=== PATIENT | female | born 1995 | race Caucasian/White ===

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

== ENCOUNTER 2017-01-21 14:57 | Emergency (ER) | payer OTHER ==
[~2017-01-21] VITALS: Ht 152.4 cm; Wt 51.0 kg
[~2017-01-21 14:57] MED LIST changes: +MOTRIN600 MG PO; +ZOFRAN ODT4 MG PO
[2017-01-21 16:08] VITALS: BP 124/64
[2017-01-21] MEDS ORDERED: PROCTOFOAM-HC10 GM PR (18:19)
== END 2017-01-21 18:27 | disposition home or self-care (01) ==
LOC: EME 14:57
PROC: 06BY3ZC Excision of Hemorrhoidal Plexus, Percutaneous Approach (ICD-10-PCS; principal; 2017-01-21)
DX: K64.5 Perianal venous thrombosis (principal)
CPT/HCPCS: 99281; 99284

== ENCOUNTER 2017-06-22 19:37 | Emergency (ER) | payer OTHER ==
[~2017-06-22] VITALS: Ht 154.9 cm; Wt 61.8 kg
[~2017-06-22 19:37] MED LIST changes: +PROCTOFOAM-HC10 GM PR
[2017-06-22 21:25] LABS: INTERNAL CONTROL VALID? YES
[2017-06-22 22:03] LABS: EOSINOPHIL (%) 1.1 % (0-5); EOSINOPHIL COUNT 0.1 K/uL (0-0.3); HEMATOCRIT 35.5 % (36.0-46.0); IMMATURE GRANULOCYTE (%) 0.4 % (0.0-0.7); INSTRUMENT ABS NEUTROPHIL CT 7.2 K/uL; LYMPHOCYTE COUNT 0.9 K/uL (1.0-2.8); MCHC 34.4 G/DL (30.0-36.0); MCV 87.2 FL (83-99); MEAN PLAT.VOLUME 9.6 uM^3 (9.5-12.4); MONOCYTE COUNT 0.6 K/uL (0-0.8); NEUTROPHIL (%) 81.1 % (45-76); NEUTROPHIL COUNT 7.2 K/uL (1.8-6.4); PLATELET COUNT 195 K/uL (156-360); RBC DIS.WIDTH-CV 12.2 % (11.8-14.6); RBC DIS.WIDTH-SD 39.5 % (39-53); RED BLOOD COUNT 4.07 M/uL (3.80-5.20); WHITE BLOOD COUNT 8.9 K/uL (4.1-10.2)
[2017-06-22 22:12] LABS: CHLORIDE 108 mEq/L (99-109); POTASSIUM 3.5 mEq/L (3.7-5.4); SODIUM 137 mEq/L (136-147)
[2017-06-22 22:13] LABS: D-DIMER ELISA < 150.00 ng/mLDDU (<230)
[2017-06-22 22:14] LABS: GLUCOSE 81 mg/dL (70-99)
[2017-06-22 22:15] LABS: ANION GAP 9 MEQ/L (2-14)
[2017-06-22 22:18] LABS: GFR ESTIMATE (CALCULATED) > 59 mL/min/
[2017-06-22 22:19] LABS: UREA NITROGEN (BUN) 10 mg/dL (9-23)
[2017-06-22 23:52] VITALS: BP 119/84
[2017-06-22] MEDS ORDERED: RIZATRIPTAN10 MG PO (23:56)
== END 2017-06-22 23:56 | disposition home or self-care (01) ==
LOC: EME → EDBD 19:37 → EME 19:37
PROVIDERS: Emergency Medicine
DX: R55 Syncope and collapse (principal); S09.90XA Unspecified injury of head, initial encounter; G93.5 Compression of brain; M54.2 Cervicalgia; W18.30XA Fall on same level, unspecified, initial encounter; Y99.0 Civilian activity done for income or pay; F41.9 Anxiety disorder, unspecified
CPT/HCPCS: 70450; 71010; 72050; 72125; 80048; 84703; 85025; 85379; 93005; 99281; 99285